=== PATIENT | male | born 1995 | race Caucasian/White ===

== ENCOUNTER 2023-06-19 20:52 | Emergency (ER) | payer OTHER ==
[2023-06-19 21:14] VITALS: O2SAT 98
--- NOTE | 2023-06-19 22:57 | ED Physician Documentation ---
PD HPI UPPER EXT INJURY - Stated complaint Stated Complaint: LT FINGER LAC - Chief complaint Chief Complaint: Laceration - History obtained from History obtained from: Patient - Additonal information Additional information: HPI from patient. Patient is right hand dominant. Approximately 20:30 tonight he was using a butter knife to try to break apart popcorn clusters when the knife slipped, causing laceration to his left second (pointer) finger. He is UTD on tetanus. Denies weakness, numbness. Review of Systems Skin: reports: Laceration (s) Neurologic: denies: Focal weakness, Numbness PD PAST MEDICAL HISTORY - Past Medical History Past Medical History: No Cardiovascular: None Respiratory: None Neuro: None Endocrine/Autoimmune: None GI: None : None HEENT: None Psych: None Musculoskeletal: None Derm: None - Past Surgical History Past Surgical History: No - Present Medications Home Medications: Ambulatory Orders Medication Instructions Recorded Confirmed No Known Home Medications 06/19/23 06/19/23 - Allergies Allergies/Adverse Reactions: Allergies Allergy/AdvReac Type Severity Reaction Status Date / Time No Known Drug Allergies Allergy Verified 06/19/23 21:07 - Social History Does the pt smoke?: No Smoking Status: Never smoker Does the pt drink ETOH?: Yes Does the pt have substance abuse?: No - Immunizations Immunizations are current?: Yes - POLST Patient has POLST: No PD ED PE NORMAL - Vitals Vital signs reviewed: Yes - General General: Alert and oriented X 3, No acute distress, Well developed/nourished - Extremities Extremities: Normal ROM s pain - Neuro Neuro: No motor deficit (FROM and strength left pointer finger in flexion and extension), No sensory deficit (LTS intact) PD ED PE EXPANDED - Extremities PATRICE UE/Hands Visual: 1 - laceration (1 cm length) Results - Vitals Vitals: Vital Signs - 24 hr 06/19/23 06/19/23 21:00 23:57 Temperature 36.8 C 36.1 C L Heart Rate 76 76 Respiratory 16 15 Rate Blood Pressure 163/84 H 155/76 H O2 Saturation 98 98 Oxygen O2 Source Room air Procedures - Laceration (location) Finger left Dorsal Length in cm: 1 Wound type: Linear, Into subcut fat, Clean Neurovascular status: Sensory intact, Motor intact, Vascular intact Tendon involvement: Tendon intact Anesthesia: Lidocaine 1% Wound preparation: Chlorhexadine, Wound explored Skin layer closure: Nylon, Running, Size #-0 - enter number (5-0) Other: Patient tolerated well, No complications, Neurovascular intact, Dressing applied, Tetanus UTD PD Medical Decision Making - ED course Complexity details: considered differential, d/w patient ED course: left pointer finger laceration repaired as above (procedure note). Advised to follow up with PCP for suture removal. Return precautions reviewed Departure - Departure Disposition: 01 Home, Self Care Clinical Impression: Laceration Condition: Good Instructions: ED Laceration Ext Sutr Stap Tape Comments: Follow with your primary care provider in 7 to 10 days for removal of the stitches. Contact your primary care provider's office in the morning to arrange for this appointment. Forms: PCP List Discharge Date/Time: 06/19/23 23:57
[2023-06-19] MEDS: BUFFERED LIDOCAINE 10 ML SYRINGE SUBQ STA (23:18)
[2023-06-20 00:01] VITALS: BP 155/76
== END 2023-06-19 23:57 | disposition home or self-care (01) ==
LOC: ED 20:52
DX: S61.211A Laceration without foreign body of left index finger without damage to nail, initial encounter (principal); W26.0XXA Contact with knife, initial encounter
CPT/HCPCS: 12001; 99283

== ENCOUNTER 2023-08-19 16:06 | Outpatient (CLI) | payer OTHER ==
--- NOTE | 2023-08-19 20:54 | MRI Report ---
PROCEDURE: Knee RT WO INDICATIONS: R KNEE PAIN TECHNIQUE: Noncontrast sagittal PD fast spin echo and T2 fast spin echo with fat saturation, sagittal 3-D gradie nt sequence with fat saturation; coronal T1 spin echo and PD fast spin echo with fat saturation, and axial PD fast spin echo with fat saturation through the knee. COMPARISON: None. FINDINGS: Image quality: Excellent. Menisci: The medial and lateral menisci demonstrate normal morphology and internal signal. The meni scal root ligaments appear intact. Cruciate ligaments: The anterior cruciate ligament appears thickened with intrasubstance T2 hyperint ense signal. The PCL is intact. Medial structures: The medial collateral ligament appears intact. Visualized portions of the pes ans erinus tendons appear normal. No abnormal bursal fluid. Lateral structures: The lateral collateral ligament, long and short heads of the biceps femoris tend on appear thickened. Lobulated cystic structure is seen lateral and posterior to distal biceps femor is tendon and measures up to 2.4 x 3 x 1 cm in size. The popliteus tendon appears normal. Iliotibial band appears normal. Anterior structures: The quadriceps and patellar tendons appear intact. Patellar alignment is petra l. No femoral trochlear dysplasia or ventral trochlear prominence. No edema in the infrapatellar fa t pad. Bones and cartilage: No bone marrow contusions or fractures. The cartilage of the medial and latera l femorotibial compartments, as well as the patellofemoral compartment, appears normal in thickness. Joint space: There is physiologic knee joint fluid. No Cano's cyst. Normal appearing synovial pli are incidentally noted. IMPRESSION: 1. Suggestion of low-grade ACL sprain. No ACL rupture. The PCL is intact. 2. Lobulated cystic structure in posterior lateral aspect of right knee joint adjacent to distal raymond ps femoris tendon suggestive of ganglion cyst formation in this area. This the biceps femoris tendino sis. Low-grade LCL sprain. 3. No evidence of focal meniscal tear. 4. No marrow edema. No fracture or dislocation. Articulating cartilages normal in thickness. Reviewed by: Harpreet Davenport MD on 08/19/2023 8:53 PM PDT Approved by: Harpreet Davenport MD on 08/19/2023 8:53 PM PDT Station ID: [id number]
== END 2023-08-19 16:07 | disposition home or self-care (01) ==
LOC: DI 16:06
PROVIDERS: ATTEND Nurse Practitioner Family
DX: S83.421A Sprain of lateral collateral ligament of right knee, initial encounter (principal); M25.861 Other specified joint disorders, right knee

== ENCOUNTER 2023-09-30 07:29 | Outpatient (CLI) | payer OTHER ==
--- NOTE | 2023-09-30 11:32 | XRAY Report ---
PROCEDURE: Knee 4+V RT INDICATIONS: PAIN IN RIGHT KNEE TECHNIQUE: 4 views of the knee(s) were acquired. COMPARISON: None. FINDINGS: Bones: No fractures or dislocations. No suspicious bony lesions. Soft tissues: No knee joint effusion. No suspicious soft tissue calcifications or masses. IMPRESSION: No visible radiodense mass in the indicated area of pain and mass per patient. Consider MRI for furth er evaluation of the soft tissues and joint space. Reviewed by: Jaclyn Ruiz MD on 09/30/2023 11:30 AM PDT Approved by: Jaclyn Ruiz MD on 09/30/2023 11:30 AM PDT Station ID: [id number]
== END 2023-09-30 07:30 | disposition home or self-care (01) ==
LOC: DI 07:29
PROVIDERS: ATTEND Physician Assistant Surgical
DX: M25.561 Pain in right knee (principal)